=== PATIENT | male | born 1965 | race Two or more races ===

== ENCOUNTER 2018-02-02 08:57 | Outpatient (CLI) | payer OTHER ==
[~2018-02-02 08:57] MED LIST: PERCOCET 5/3251 TAB PO; PRILOSEC OTC20 MG PO; RECTICARE30 GM TP; SYNTHROID125 MCG PO
== END 2018-02-02 09:04 | disposition home or self-care (01) ==
LOC: SONOGRAMA 08:57 → MAMO-SONO 09:15
DX: E04.2 Nontoxic multinodular goiter (principal); E04.0 Nontoxic diffuse goiter

== ENCOUNTER 2018-02-23 08:56 | Outpatient (CLI) | payer OTHER | END 2018-02-23 10:45 | disposition home or self-care (01) | LOC: SONOGRAMA 08:56 | DX: E04.1 Nontoxic single thyroid nodule (principal) ==

== ENCOUNTER 2020-05-16 09:09 | Outpatient (CLI) | payer OTHER | END 2020-05-16 09:22 | disposition home or self-care (01) | LOC: MAMO-SONO 09:09 | PROVIDERS: ATTEND Internal Medicine Endocrinology, Diabetes & Metabolism | DX: E04.1 Nontoxic single thyroid nodule (principal); E04.8 Other specified nontoxic goiter; E06.3 Autoimmune thyroiditis ==

== ENCOUNTER 2022-04-01 09:04 | Emergency (ER) | payer OTHER ==
[~2022-04-01] VITALS: Ht 172.7 cm; Wt 81.6 kg
== END 2022-04-01 12:11 | disposition home or self-care (01) ==
LOC: ER 09:04
DX: K29.70 Gastritis, unspecified, without bleeding (principal)

== ENCOUNTER 2022-04-03 06:44 | Emergency (ER) | payer OTHER ==
[~2022-04-03] VITALS: Ht 175.3 cm; Wt 66.2 kg
== END 2022-04-03 12:57 | disposition left against medical advice (07) ==
LOC: ER 06:44
DX: R10.13 Epigastric pain (principal); K85.90 Acute pancreatitis without necrosis or infection, unspecified

== ENCOUNTER 2024-11-07 10:14 | Outpatient (CLI) | payer OTHER | END 2024-11-07 10:20 | disposition home or self-care (01) | LOC: SONOGRAMA 10:14 | PROVIDERS: ATTEND Internal Medicine | DX: E04.2 Nontoxic multinodular goiter (principal); R91.8 Other nonspecific abnormal finding of lung field ==